=== PATIENT | female | born 1955 | race Caucasian/White ===

== ENCOUNTER 2019-09-16 07:58 | Emergency (ER) | payer MEDICARE, MEDICAID ==
[~2019-09-16] VITALS: Ht 165.1 cm; Wt 80.5 kg
[~2019-09-16 07:58] MED LIST: ARIP300S IM; ASPI-1265 PO; BECL8.7A5 IH; CARV3.12 PO; CLOP75TA35 PO; FERR142T6 PO; GLUC-133 PO; HYDR-2561 PO; LAMO25TA62 PO; NIA500ERT PO; OMEG100T PO; PERP4TAB11 PO; POLY17PO10 PO; QUET-1 PO; RANI-327 PO; SENN-162 PO; TRAM50TA2 PO; ZET10T PO; [UNRECOGNIZED DRUG - CODE] PO
[2019-09-16 08:01] VITALS: BP 126/72
[2019-09-16] MEDS ORDERED: nitroGLYCERIN 0.4mg/hour patch TD ONE (08:10)
[2019-09-16 08:37] LABS: BASOPHILS % (AUTO) 0.4 % (0-1); EOSINOPHILS # (AUTO) 0.3 X10'3 (0-0.9); EOSINOPHILS % (AUTO) 4.4 % (0-6); HEMATOCRIT 36.8 % (35.0-45.0); HEMOGLOBIN 12.4 g/dl (12.0-16.0); LYMPHOCYTES # (AUTO) 1.9 X10'3 (1.1-4.8); LYMPHOCYTES % (AUTO) 28.4 % (21-51); MEAN CORPUSCULAR HEMOGLOBIN 30.1 PG (27.0-31.0); MEAN CORPUSCULAR HGB CONC 33.8 g/dL (33.0-36.5); MEAN CORPUSCULAR VOLUME 89.3 FL (78-98); MEAN PLATELET VOLUME 7.6 FL (7.4-10.4); MONOCYTES # (AUTO) 0.8 X10'3 (0-0.9); MONOCYTES % (AUTO) 11.4 % (2-12); NEUTROPHILS # (AUTO) 3.7 X10'3 (1.8-7.7); NEUTROPHILS % (AUTO) 55.4 % (42-75); PLATELET COUNT 241 X10'3 (140-440); RED BLOOD COUNT 4.12 X10'6 (4.20-5.60); RED CELL DISTRIBUTION WIDTH 13.6 % (11.5-14.5); WHITE BLOOD COUNT 6.7 X10'3 (4.5-11.0)
[2019-09-16 08:44] LABS: PARTIAL THROMBOPLASTIN TIME 28 SECONDS (22-32)
[2019-09-16 08:58] LABS: ALANINE AMINOTRANSFERASE 22 U/L (12-78); ALBUMIN 3.7 G/DL (3.4-5.0); ALKALINE PHOSPHATASE 79 IU/L (46-116); ANION GAP 5 (8-16); ASPARTATE AMINO TRANSFERASE 19 U/L (10-37); BILIRUBIN,TOTAL 0.3 MG/DL (0.1-1.0); BLOOD UREA NITROGEN 26 MG/DL (7-18); BUN/CREATININE RATIO 27.1 (6.6-38.0); CHLORIDE 105 MMOL/L (99-107); CREATININE 0.96 MG/DL (0.40-0.90); GLUCOSE 100 MG/DL (70-104); MAGNESIUM 1.9 MG/DL (1.5-2.4); POTASSIUM 4.2 MMOL/L (3.5-5.1); SODIUM 140 MMOL/L (135-145); TOTAL CARBON DIOXIDE 30.1 MMOL/L (24-32); TOTAL PROTEIN 7.3 G/DL (6.4-8.2); eGFR 58 ML/MIN
[2019-09-16] MEDS ORDERED: acetaminophen 325mg tablet PO ONE (09:25)
== END 2019-09-16 10:29 | disposition home or self-care (01) ==
LOC: ER 07:59
DX: R07.89 Other chest pain (principal); I25.2 Old myocardial infarction; Z88.8 Allergy status to other drugs, medicaments and biological substances; Z79.82 Long term (current) use of aspirin; Z79.899 Other long term (current) drug therapy
CPT/HCPCS: 36415; 71045; 80053; 83735; 83880; 84484; 85025; 85610; 85730; 93005; 99285

== ENCOUNTER 2023-06-30 14:51 | Outpatient (CLI) | payer MEDICARE, MEDICAID ==
[~2023-06-30] VITALS: Ht 154.9 cm; Wt 80.7 kg
[~2023-06-30 14:51] MED LIST changes: +ACET-75 PO; +ARIP15TA19 PO; +ASPI-1 PO; -ASPI-1265 PO; -BECL8.7A5 IH; -CLOP75TA35 PO; +DOCU-22 PO; -FERR142T6 PO; +FURO40TA4 PO; -GLUC-133 PO; +LISI2.5T14 PO; +LORA10TA7 PO; +LOVA20TA2 PO; +MAGN296S68 PO; +MECL-302 PO; +NITR0.4T51 SL; -OMEG100T PO; +OMEP40CA21 PO; +OXYC-150 PO; +POTA-366 PO; -RANI-327 PO; -SENN-162 PO; +SENN-263 PO; +SUCR1TAB PO; +TRIA15CR61 TOP; -ZET10T PO; -[UNRECOGNIZED DRUG - CODE] PO
[2023-06-30 15:36] VITALS: PULSE 75; RESP 15; O2SAT 97
[2023-06-30] MEDS ORDERED: albuterol 2.5 MG/3 ML nebule NEB ONE (15:40)
== END 2023-06-30 23:59 | disposition home or self-care (01) ==
LOC: RT 14:51
PROVIDERS: ATTEND Physician Assistant
DX: R06.00 Dyspnea, unspecified (principal); Z87.891 Personal history of nicotine dependence; Z79.82 Long term (current) use of aspirin; Z79.899 Other long term (current) drug therapy
CPT/HCPCS: 94060; 94760

== ENCOUNTER 2024-09-14 14:06 | Outpatient (CLI) | payer MEDICARE, MEDICAID ==
[~2024-09-14 14:06] MED LIST changes: -ARIP15TA19 PO; +ARIP15TA68 PO; -SENN-263 PO; +SENN-360 PO
[2024-09-14 14:35] LABS: TOTAL HEMOGLOBIN 12.3 G/dl (12.0-16.0)
== END 2024-09-14 23:59 | disposition home or self-care (01) ==
LOC: RT 14:06
PROVIDERS: ATTEND Internal Medicine Critical Care Medicine
DX: J44.9 Chronic obstructive pulmonary disease, unspecified (principal); J30.9 Allergic rhinitis, unspecified; R05.9 Cough, unspecified; R06.2 Wheezing; R53.83 Other fatigue; R06.02 Shortness of breath
CPT/HCPCS: 85018; A6449